=== PATIENT | male | born 1955 | race Hispanic/Latino ===

== ENCOUNTER 2022-09-15 13:31 | Observation (INO) | payer OTHER, SELFPAY ==
[~2022-09-15] VITALS: Ht 175.3 cm; Wt 86.7 kg
[2022-09-15 14:13] LABS: BASOPHILS % (AUTO) 0.9 % (0.0-5.0); EOSINOPHILS % (AUTO) 1.6 % (0.0-8.0); HEMATOCRIT 47.4 % (42-54); LYMPHOCYTES % (AUTO) 20.4 % (21.0-51.0); MEAN CORPUSCULAR HEMOGLOBIN 30.3 pg (27.0-33.0); MEAN CORPUSCULAR HGB CONC 34.4 g/dL (32.0-36.0); MEAN CORPUSCULAR VOLUME 88.1 fL (79-99); MONOCYTES % (AUTO) 6.7 % (3.0-13.0); NEUTROPHILS % (AUTO) 70.1 % (40.0-77.0); PLATELET COUNT (AUTO) 291 K/uL (130-400); RED BLOOD CELL COUNT(AUTO) 5.38 MIL/uL (4.50-6.20); RED CELL DISTRIBUTION WIDTH 13.1 % (11.0-15.5); WHITE BLOOD COUNT (AUTO) 9.3 K/uL (4.8-10.8)
[2022-09-15 14:27] LABS: CREATININE 1.3 mg/dL (0.5-1.5); POTASSIUM 3.4 mmol/L (3.5-5.1)
[2022-09-15 14:32] LABS: ALBUMIN 3.4 g/dL (3.5-5.0); TOTAL PROTEIN, SERUM 7.8 g/dL (6.0-8.3)
[2022-09-15] MEDS ORDERED: CLOPIDOGREL 300MG TAB PO ONE (15:30)
[2022-09-15] MEDS ORDERED: ASPIRIN 81MG CHEW TAB PO ONE (15:30)
[2022-09-15 15:31] LABS: B-TYPE NATRIURETIC PEPTIDE 129 pg/mL (0-100)
[2022-09-15] MEDS ORDERED: ALBUTEROL 0.083% 2.5 MG/3 ML INH IH PRN (16:00)
[2022-09-15] MEDS ORDERED: NITROGLYCERIN 1GM OINT 1 INCH/1GM TD PRN (16:00)
[2022-09-15] MEDS ORDERED: ONDANSETRON 4MG INJ IVP PRN (16:00)
[2022-09-15] MEDS ORDERED: LABETALOL 20MG SYG IV PRN (16:00)
[2022-09-15] MEDS ORDERED: ACETAMINOPHEN 325 MG TAB PO PRN (16:00)
[2022-09-15] MEDS ORDERED: POTASSIUM CHLORIDE 20MEQ/100ML 100 ML IV PRN (16:00)
[2022-09-15] MEDS ORDERED: LACTULOSE 20 GM/30 ML UDCUP PO PRN (16:00)
[2022-09-15] MEDS ORDERED: POTASSIUM CHLORIDE 10% ELIXIR 20 MEQ/15 ML UDCUP PO PRN (16:00)
[2022-09-15] MEDS ORDERED: HYDRALAZINE 20MG/ML VIAL IV PRN (16:00)
[2022-09-15] MEDS: INSULIN HUMULIN R 100 UNIT/ML 3ML SQ SCH ×2 (16:30→21:00)
[2022-09-15] MEDS ORDERED: LISI10TA24 PO (16:51)
[2022-09-15 17:31] LABS: APPEARANCE,URINE CLEAR (CLEAR); BILIRUBIN,URINE NEGATIVE (NEGATIVE); COLOR,URINE LIGHT-YELLOW (YELLOW); GLUCOSE, URINE (UA) NEGATIVE (NEGATIVE); KETONES,URINE NEGATIVE (NEGATIVE); LEUKOCYTE ESTERASE ,URINE NEGATIVE Leu/uL (NEGATIVE); NITRATE,URINE NEGATIVE (NEGATIVE); OCCULT BLOOD,URINE SMALL (NEGATIVE); PH,URINE 5.5 (5.0-8.0); PROTEIN,URINE NEGATIVE (NEGATIVE); UROBILINOGEN,URINE 0.2 mg/dL (0.2-1.0)
[2022-09-15 17:38] LABS: MUCUS,URINE RARE LPF (None Seen); OTHER CASTS, URINE 3 /LPF (None Seen); WBC,URINE 0-1 /HPF (0-1)
[2022-09-15] MEDS ORDERED: SIMVASTATIN 20 MG TABLET PO SCH (21:00)
[2022-09-15] MEDS: FAMOTIDINE 20MG TAB PO SCH (21:00)
[2022-09-16] VITALS (7 sets, daily range): BP systolic 128–161; BP diastolic 71–86
[2022-09-16] MEDS: KCL 20 MEQ ERTAB PO PRN ×2 (00:17→00:49)
[2022-09-16 04:27] LABS: BASOPHILS % (AUTO) 0.6 % (0.0-5.0); EOSINOPHILS % (AUTO) 3.2 % (0.0-8.0); MEAN CORPUSCULAR HEMOGLOBIN 30.5 pg (27.0-33.0); MEAN CORPUSCULAR HGB CONC 34.3 g/dL (32.0-36.0); MONOCYTES % (AUTO) 9.6 % (3.0-13.0); NEUTROPHILS % (AUTO) 58.5 % (40.0-77.0); PLATELET COUNT (AUTO) 264 K/uL (130-400); RED BLOOD CELL COUNT(AUTO) 4.72 MIL/uL (4.50-6.20); RED CELL DISTRIBUTION WIDTH 13.1 % (11.0-15.5); WHITE BLOOD COUNT (AUTO) 7.9 K/uL (4.8-10.8)
[2022-09-16 04:40] LABS: HEMOGLOBIN A1C 6.1 % (4.0-6.0)
[2022-09-16] MEDS: INSULIN HUMULIN R 100 UNIT/ML 3ML SQ SCH ×4 (04:44→21:00)
[2022-09-16 04:58] LABS: CREATININE 1.2 mg/dL (0.5-1.5); MAGNESIUM 2.1 mg/dL (1.80-2.40); PHOSPHORUS 4.1 mg/dL (2.5-4.9); POTASSIUM 4.5 mmol/L (3.5-5.1); THYROID STIMULATING HORMONE 2.21 uIU/mL (0.36-3.74)
[2022-09-16 05:11] LABS: B-TYPE NATRIURETIC PEPTIDE 158 pg/mL (0-100)
[2022-09-16] MEDS: ASPIRIN 81MG CHEW TAB PO SCH (09:00)
[2022-09-16] MEDS: ENOXAPARIN SODIUM 30 MG/0.3 ML SQ SCH (09:00)
[2022-09-16] MEDS: FAMOTIDINE 20MG TAB PO SCH ×2 (09:00→20:22)
[2022-09-16] MEDS ORDERED: CLOPIDOGREL 300MG TAB PO SCH (12:00)
[2022-09-16] MEDS ORDERED: LOSARTAN 25 MG TABLET PO ONE (12:00)
[2022-09-16] MEDS ORDERED: 0.9% NACL 500ML IV.SOLN 500 ML IV SCH (12:00)
[2022-09-16] MEDS: LABETALOL HCL 200 MG TABLET PO SCH ×4 (12:00→20:22)
[2022-09-16] MEDS: LOSARTAN 25 MG TABLET PO SCH (12:00)
[2022-09-16] MEDS: EZETIMIBE 10 MG TAB PO SCH (20:22)
[2022-09-16] MEDS ORDERED: ATORVASTATIN 40 MG TABLET PO SCH (21:00)
[2022-09-16 22:13] LABS: AMPHET/METH SCREEN,URINE NEGATIVE (NEGATIVE); BARBITURATE SCREEN, URINE NEGATIVE (NEGATIVE); BENZODIAZEPINES SCREEN,URINE NEGATIVE (NEGATIVE); CANNABINOID SCREEN,URINE NEGATIVE (NEGATIVE); COCAINE SCREEN,URINE NEGATIVE (NEGATIVE); OPIATE SCREEN,URINE NEGATIVE (NEGATIVE); PHENCYCLIDINE SCREEN,URINE NEGATIVE (NEGATIVE)
[2022-09-17] VITALS (9 sets, daily range): BP systolic 94–132; BP diastolic 59–82
[2022-09-17 05:18] LABS: BASOPHILS % (AUTO) 0.5 % (0.0-5.0); EOSINOPHILS % (AUTO) 2.8 % (0.0-8.0); HEMATOCRIT 41.9 % (42-54); LYMPHOCYTES % (AUTO) 20.6 % (21.0-51.0); MEAN CORPUSCULAR HEMOGLOBIN 29.9 pg (27.0-33.0); MEAN CORPUSCULAR HGB CONC 33.7 g/dL (32.0-36.0); MONOCYTES % (AUTO) 9.7 % (3.0-13.0); NEUTROPHILS % (AUTO) 66.1 % (40.0-77.0); PLATELET COUNT (AUTO) 270 K/uL (130-400); RED BLOOD CELL COUNT(AUTO) 4.71 MIL/uL (4.50-6.20); RED CELL DISTRIBUTION WIDTH 13.2 % (11.0-15.5); WHITE BLOOD COUNT (AUTO) 7.9 K/uL (4.8-10.8)
[2022-09-17 05:32] LABS: INR 0.94 (0.85-1.15); PROTHROMBIN TIME 10.3 SEC (9.6-11.6)
[2022-09-17 05:33] LABS: PARTIAL THROMBOPLASTIN TIME 27.3 SEC (26.3-35.5)
[2022-09-17 05:37] LABS: CREATININE 1.1 mg/dL (0.5-1.5); POTASSIUM 4.1 mmol/L (3.5-5.1)
[2022-09-17] MEDS: INSULIN HUMULIN R 100 UNIT/ML 3ML SQ SCH ×2 (05:53→11:30)
[2022-09-17] MEDS: LOSARTAN 25 MG TABLET PO SCH (05:54)
[2022-09-17] MEDS: LABETALOL HCL 200 MG TABLET PO SCH (05:54)
[2022-09-17] MEDS: ENOXAPARIN SODIUM 30 MG/0.3 ML SQ SCH (08:07)
[2022-09-17] MEDS: ASPIRIN 81MG CHEW TAB PO SCH (08:07)
[2022-09-17] MEDS: FAMOTIDINE 20MG TAB PO SCH (08:07)
[2022-09-17] MEDS: EZETIMIBE 10 MG TAB PO SCH (08:07)
[2022-09-17] MEDS ORDERED: LIDOCAINE HCL 1% 20 ML VIAL ONE (08:15)
[2022-09-17] MEDS ORDERED: HEPARIN 10,000 UNIT/10ML (1,000 UNIT/ML) VIAL ONE (08:15)
[2022-09-17] MEDS ORDERED: IOHEXOL-350 50ML VIAL IV ONE (08:16)
[2022-09-17] MEDS ORDERED: IOHEXOL 350 MG/ML 100ML INFUS..BTL IV ONE (08:16)
[2022-09-17] MEDS ORDERED: FENTANYL CITRATE PF 50 MCG/1 ML 2ML VIAL ONE (08:16)
[2022-09-17] MEDS ORDERED: MIDAZOLAM HCL 1 MG/ML 2ML VIAL ONE (08:16)
[2022-09-17] MEDS ORDERED: SODIUM BICARB 50MEQ 50ML VIAL 50 ML ONE (08:25)
[2022-09-17] MEDS ORDERED: NICARDIPINE 25MG INJ IV ONE (08:26)
[2022-09-17] MEDS ORDERED: IOHEXOL-350 75 ML VIAL IV ONE (09:10)
[2022-09-17] MEDS ORDERED: LABE200T7 PO (09:38)
[2022-09-17] MEDS ORDERED: LOSA25TA2 PO (09:38)
[2022-09-17] MEDS ORDERED: ATOR40TA69 PO (09:38)
[2022-09-17] MEDS: 0.9% NACL 500ML IV.SOLN 500 ML IV SCH ×2 (10:00→13:20)
[2022-09-17] MEDS ORDERED: ASPI-1005 PO (12:17)
== END 2022-09-17 15:25 | disposition home or self-care (01) ==
LOC: EDH 13:31 → EDHIP 15:38 → 4BH 23:30
PROVIDERS: ADMIT Internal Medicine; ATTEND Internal Medicine
DX: I25.119 Atherosclerotic heart disease of native coronary artery with unspecified angina pectoris (principal); Z20.822 Contact with and (suspected) exposure to COVID-19; E87.6 Hypokalemia; I10 Essential (primary) hypertension; I21.4 Non-ST elevation (NSTEMI) myocardial infarction; E78.5 Hyperlipidemia, unspecified; I25.2 Old myocardial infarction; R77.8 Other specified abnormalities of plasma proteins; Z79.02 Long term (current) use of antithrombotics/antiplatelets; Z79.82 Long term (current) use of aspirin; Z79.899 Other long term (current) drug therapy; Z87.891 Personal history of nicotine dependence
CPT/HCPCS: 82550 ×3; 83735 ×2; 83874 ×3; 84484 ×5; 80053; 83880 ×2; 80305; 82140; 85025 ×3; 82948 ×8; 81001; 36415 ×3; 71045 ×2; 99291; 93005 ×2; 96374; 83036; 84443; 84100; 80061; 80048 ×2; 83605; 93306; 93356; 84145; 93458; 85610; 85730; 87635; G0378 ×43; J7040; C1769; C1894; Q9965; J3010; J3490 ×2; J1644 ×2; J2250; Q9967 ×2; 99156; 99157

== ENCOUNTER 2023-02-07 21:33 | Observation (INO) | payer OTHER ==
[~2023-02-07] VITALS: Ht 175.3 cm; Wt 87.1 kg
[~2023-02-07 21:33] MED LIST: ASPI-1005 PO; ATOR40TA69 PO; LABE200T7 PO; LOSA25TA2 PO
[2023-02-07 21:50] LABS: BASOPHILS % (AUTO) 0.7 % (0.0-5.0); EOSINOPHILS % (AUTO) 3.2 % (0.0-8.0); HEMATOCRIT 44.9 % (42-54); LYMPHOCYTES % (AUTO) 24.4 % (21.0-51.0); MEAN CORPUSCULAR HEMOGLOBIN 30.5 pg (27.0-33.0); MEAN CORPUSCULAR HGB CONC 33.6 g/dL (32.0-36.0); MEAN CORPUSCULAR VOLUME 90.7 fL (79-99); MONOCYTES % (AUTO) 8.6 % (3.0-13.0); NEUTROPHILS % (AUTO) 62.9 % (40.0-77.0); PLATELET COUNT (AUTO) 273 K/uL (130-400); RED BLOOD CELL COUNT(AUTO) 4.95 MIL/uL (4.50-6.20); RED CELL DISTRIBUTION WIDTH 12.9 % (11.0-15.5); WHITE BLOOD COUNT (AUTO) 8.4 K/uL (4.8-10.8)
[2023-02-07 22:01] LABS: APPEARANCE,URINE CLEAR (CLEAR); BILIRUBIN,URINE NEGATIVE (NEGATIVE); COLOR,URINE LIGHT-YELLOW (YELLOW); CREATININE 1.4 mg/dL (0.5-1.5); GLUCOSE, URINE (UA) NEGATIVE (NEGATIVE); KETONES,URINE NEGATIVE (NEGATIVE); LEUKOCYTE ESTERASE ,URINE NEGATIVE Leu/uL (NEGATIVE); NITRATE,URINE NEGATIVE (NEGATIVE); OCCULT BLOOD,URINE MODERATE (NEGATIVE); PH,URINE 5.5 (5.0-8.0); PROTEIN,URINE 30 mg/dL (NEGATIVE); UROBILINOGEN,URINE 0.2 mg/dL (0.2-1.0)
[2023-02-07 22:06] LABS: BACTERIA,URINE RARE /HPF (None Seen); MUCUS,URINE RARE LPF (None Seen); YEAST,URINE BUDDING FEW /HPF (None Seen)
[2023-02-07 22:13] LABS: ALBUMIN 3.3 g/dL (3.5-5.0); TOTAL PROTEIN, SERUM 7.3 g/dL (6.0-8.3)
[2023-02-08] MEDS ORDERED: ACETAMINOPHEN 325 MG TAB PO PRN (01:00)
[2023-02-08] MEDS ORDERED: MORPHINE 2 MG SYG IVP PRN (01:00)
[2023-02-08] MEDS ORDERED: ONDANSETRON 4MG INJ IVP PRN (01:00)
[2023-02-08] MEDS ORDERED: ENOXAPARIN SODIUM 80 MG/0.8 ML SQ ONE (01:00)
[2023-02-08] MEDS ORDERED: HYDRALAZINE 20MG/ML VIAL IV PRN (01:00)
[2023-02-08] MEDS ORDERED: ASPIRIN 81MG CHEW TAB PO ONE (01:00)
[2023-02-08] MEDS ORDERED: LACTULOSE 20 GM/30 ML UDCUP PO PRN (01:00)
[2023-02-08] MEDS ORDERED: DEXTROSE 50%-WATER 50 ML DISP.SYRIN IV PRN (01:00)
[2023-02-08] MEDS ORDERED: GLUCAGON 1MG KIT 1 MG ML IM PRN (01:00)
[2023-02-08] MEDS ORDERED: ALBUTEROL 0.083% 2.5 MG/3 ML INH IH PRN (01:00)
[2023-02-08] MEDS ORDERED: AEC81 PO (03:33)
[2023-02-08] MEDS ORDERED: RIVA2.5T PO (03:33)
[2023-02-08] MEDS ORDERED: ATOR40TA69 PO (03:33)
[2023-02-08] MEDS ORDERED: LABE200T7 PO ×2 (03:33→14:49)
[2023-02-08] MEDS ORDERED: ACET-2079 PO (03:33)
[2023-02-08] MEDS ORDERED: ISOS30TA92 PO (03:33)
[2023-02-08] MEDS ORDERED: LOSA25TA41 PO (03:33)
[2023-02-08 03:51] VITALS: BP 136/85
[2023-02-08] MEDS ORDERED: ATORVASTATIN 40 MG TABLET PO SCH (04:00)
[2023-02-08 04:27] LABS: AMPHET/METH SCREEN,URINE NEGATIVE (NEGATIVE); BARBITURATE SCREEN, URINE NEGATIVE (NEGATIVE); BENZODIAZEPINES SCREEN,URINE NEGATIVE (NEGATIVE); CANNABINOID SCREEN,URINE NEGATIVE (NEGATIVE); COCAINE SCREEN,URINE NEGATIVE (NEGATIVE); OPIATE SCREEN,URINE NEGATIVE (NEGATIVE); PHENCYCLIDINE SCREEN,URINE NEGATIVE (NEGATIVE)
[2023-02-08] MEDS: INSULIN HUMULIN R 100 UNIT/ML 3ML SQ SCH ×3 (06:47→14:59)
[2023-02-08 07:46] LABS: PROTHROMBIN TIME 10.9 SEC (9.6-11.6)
[2023-02-08 07:48] VITALS: BP 130/74
[2023-02-08 08:00] LABS: THYROID STIMULATING HORMONE 1.97 uIU/mL (0.36-3.74)
[2023-02-08] MEDS: DOCUSATE SODIUM 100 MG CAP PO SCH ×2 (08:50→09:00)
[2023-02-08] MEDS ORDERED: ASPIRIN 81MG CHEW TAB PO SCH (09:00)
[2023-02-08] MEDS ORDERED: ASPIRIN 81 MG EC TAB PO SCH (09:00)
[2023-02-08 09:08] LABS: BASOPHILS % (AUTO) 0.8 % (0.0-5.0); EOSINOPHILS % (AUTO) 3.5 % (0.0-8.0); HEMATOCRIT 42.7 % (42-54); LYMPHOCYTES % (AUTO) 24.7 % (21.0-51.0); MEAN CORPUSCULAR HEMOGLOBIN 30.2 pg (27.0-33.0); MEAN CORPUSCULAR VOLUME 91.4 fL (79-99); MONOCYTES % (AUTO) 10.3 % (3.0-13.0); NEUTROPHILS % (AUTO) 60.4 % (40.0-77.0); PLATELET COUNT (AUTO) 280 K/uL (130-400); RED BLOOD CELL COUNT(AUTO) 4.67 MIL/uL (4.50-6.20); RED CELL DISTRIBUTION WIDTH 13.1 % (11.0-15.5); WHITE BLOOD COUNT (AUTO) 7.4 K/uL (4.8-10.8)
[2023-02-08 09:11] LABS: CREATININE 1.2 mg/dL (0.5-1.5); POTASSIUM 4.1 mmol/L (3.5-5.1)
[2023-02-08 12:00] VITALS: BP 129/58
[2023-02-08] MEDS ORDERED: ENOXAPARIN SODIUM 80 MG/0.8 ML SQ SCH (13:00)
[2023-02-08 14:50] VITALS: BP 137/71
== END 2023-02-08 15:30 | disposition home or self-care (01) ==
LOC: EDH 21:33 → EDHIP 02-08 00:46 → 2DH 02-08 03:04
PROVIDERS: ADMIT Internal Medicine Critical Care Medicine; ATTEND Internal Medicine Critical Care Medicine
DX: D68.9 Coagulation defect, unspecified (principal); I21.4 Non-ST elevation (NSTEMI) myocardial infarction; I10 Essential (primary) hypertension; I25.110 Atherosclerotic heart disease of native coronary artery with unstable angina pectoris; E11.9 Type 2 diabetes mellitus without complications; J44.9 Chronic obstructive pulmonary disease, unspecified; E78.00 Pure hypercholesterolemia, unspecified; E75.6 Lipid storage disorder, unspecified; Z87.891 Personal history of nicotine dependence; Z98.61 Coronary angioplasty status; Z79.899 Other long term (current) drug therapy; Z98.890 Other specified postprocedural states; Z79.82 Long term (current) use of aspirin
CPT/HCPCS: 84484 ×4; 80053; 83880; 85025 ×2; 85378 ×2; 81001; 36415 ×2; 71045; 99291; 93005 ×2; 96372; 83036; 84443; 82550; 83874; 82330; 80061; 80048; 80305; 85610; 82948 ×3; G0378 ×13; J1650 ×2; C8929; 93306

== ENCOUNTER → 2024-01-25 | Outpatient (CLI) | payer OTHER ==
[~2024-01-25] MED LIST changes: +ACET-2079 PO; +AEC81 PO; -ASPI-1005 PO; +IOHEXOL 350 MG/ML 100ML INFUS..BTL IV ONE; +ISOS30TA92 PO; -LOSA25TA2 PO; +LOSA25TA41 PO; +RIVA2.5T PO
== END | disposition home or self-care (01) ==
LOC: RAH 07:18
PROVIDERS: ATTEND Urology
DX: N40.0 Benign prostatic hyperplasia without lower urinary tract symptoms (principal); K40.90 Unilateral inguinal hernia, without obstruction or gangrene, not specified as recurrent; R31.0 Gross hematuria; K57.90 Diverticulosis of intestine, part unspecified, without perforation or abscess without bleeding
CPT/HCPCS: 74178; Q9967

== ENCOUNTER 2024-07-18 13:08 | Emergency (ER) | payer OTHER ==
[~2024-07-18] VITALS: Ht 175.3 cm; Wt 95.3 kg
[~2024-07-18 13:08] MED LIST changes: -IOHEXOL 350 MG/ML 100ML INFUS..BTL IV ONE
[2024-07-18 13:40] LABS: BASOPHILS # (AUTO) 0.06 K/uL (0.00-0.20); BASOPHILS % (AUTO) 0.7 % (0.0-5.0); EOSINOPHILS % (AUTO) 3.4 % (0.0-8.0); HEMATOCRIT 45.3 % (42-54); IMMATURE GRANULOCYTE ABSOLUTE 0.02 K/uL (0-1); LYMPHOCYTES # (AUTO) 2.3 K/uL (1.0-4.8); MEAN CORPUSCULAR HGB CONC 33.6 g/dL (32.0-36.0); MEAN CORPUSCULAR VOLUME 89.3 fL (79-99); MONOCYTES # (AUTO) 0.9 K/uL (0.1-1.0); MONOCYTES % (AUTO) 9.6 % (3.0-13.0); NEUTROPHILS # (AUTO) 5.3 K/uL (1.8-7.7); NEUTROPHILS % (AUTO) 60.1 % (40.0-77.0); PLATELET COUNT (AUTO) 287 K/uL (130-400); RED BLOOD CELL COUNT(AUTO) 5.07 MIL/uL (4.50-6.20); RED CELL DISTRIBUTION WIDTH 13.2 % (11.0-15.5); WHITE BLOOD COUNT (AUTO) 8.9 K/uL (4.8-10.8)
[2024-07-18 13:47] LABS: CREATININE 1.3 mg/dL (0.5-1.3); POTASSIUM 4.4 mmol/L (3.5-5.1)
[2024-07-18 13:49] LABS: INR 1.11 (0.85-1.15); PROTHROMBIN TIME 11.9 SEC (9.6-11.6)
[2024-07-18 13:51] LABS: PARTIAL THROMBOPLASTIN TIME 33.3 SEC (26.3-35.5)
[2024-07-18 14:06] LABS: B-TYPE NATRIURETIC PEPTIDE 73 pg/mL (0-100)
[2024-07-18] MEDS: PANTOPRAZOLE 40 MG/VIAL IVP ONE (14:29)
[2024-07-18 14:30] LABS: APPEARANCE,URINE CLEAR (CLEAR); BILIRUBIN,URINE NEGATIVE (NEGATIVE); COLOR,URINE COLORLESS (YELLOW); GLUCOSE, URINE (UA) NEGATIVE (NEGATIVE); KETONES,URINE NEGATIVE (NEGATIVE); LEUKOCYTE ESTERASE ,URINE NEGATIVE Leu/uL (NEGATIVE); NITRATE,URINE NEGATIVE (NEGATIVE); OCCULT BLOOD,URINE SMALL (NEGATIVE); PH,URINE 5.5 (5.0-8.0); PROTEIN,URINE NEGATIVE (NEGATIVE); UROBILINOGEN,URINE 0.2 mg/dL (0.2-1.0)
[2024-07-18 14:33] LABS: ADD UA MICROSCOPIC YES
[2024-07-18 14:41] LABS: MUCUS,URINE RARE LPF (None Seen); RBC,URINE 0-1 /HPF (0-1); WBC,URINE 0-1 /HPF (0-1)
[2024-07-18] MEDS ORDERED: PANT40TA55 PO (15:24)
[2024-07-18 15:37] VITALS: BP 123/68; PULSE 59; RESP 14; TEMP 98.8; O2SAT 98
== END 2024-07-18 15:59 | disposition home or self-care (01) ==
LOC: EDH 13:08
DX: R00.2 Palpitations (principal); K21.9 Gastro-esophageal reflux disease without esophagitis; I48.91 Unspecified atrial fibrillation; I25.10 Atherosclerotic heart disease of native coronary artery without angina pectoris; E78.00 Pure hypercholesterolemia, unspecified; I10 Essential (primary) hypertension; F17.200 Nicotine dependence, unspecified, uncomplicated; Z98.890 Other specified postprocedural states; Z79.899 Other long term (current) drug therapy; Z79.82 Long term (current) use of aspirin
CPT/HCPCS: 99285; 96374; 71045; 82550; 83735; 84484 ×3; 80048; 83880; 85025; 85610; 85730; 81001; 36415; 93005; J2470

== ENCOUNTER 2024-11-25 05:39 | Day surgery (SDC) | payer OTHER ==
--- NOTE | 2024-11-23 09:10 | EKG ---
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
[2024-11-23 09:17] LABS: BASOPHILS # (AUTO) 0.08 K/uL (0.00-0.20); BASOPHILS % (AUTO) 0.8 % (0.0-5.0); EOSINOPHILS # (AUTO) 0.25 K/uL (0.00-0.70); EOSINOPHILS % (AUTO) 2.7 % (0.0-8.0); HEMATOCRIT 45.5 % (42-54); IMMATURE GRANULOCYTE ABSOLUTE 0.04 K/uL (0-1); LYMPHOCYTES # (AUTO) 1.8 K/uL (1.0-4.8); LYMPHOCYTES % (AUTO) 18.9 % (21.0-51.0); MEAN CORPUSCULAR HEMOGLOBIN 30.4 pg (27.0-33.0); MEAN CORPUSCULAR HGB CONC 33.6 g/dL (32.0-36.0); MEAN CORPUSCULAR VOLUME 90.5 fL (79-99); MONOCYTES # (AUTO) 0.9 K/uL (0.1-1.0); MONOCYTES % (AUTO) 9.4 % (3.0-13.0); NEUTROPHILS # (AUTO) 6.4 K/uL (1.8-7.7); NEUTROPHILS % (AUTO) 67.8 % (40.0-77.0); PLATELET COUNT (AUTO) 263 K/uL (130-400); RED BLOOD CELL COUNT(AUTO) 5.03 MIL/uL (4.50-6.20); RED CELL DISTRIBUTION WIDTH 13.3 % (11.0-15.5); WHITE BLOOD COUNT (AUTO) 9.4 K/uL (4.8-10.8)
[2024-11-23 09:26] LABS: CREATININE 1.4 mg/dL (0.5-1.3); POTASSIUM 4.1 mmol/L (3.5-5.1)
[2024-11-23 09:28] LABS: INR 1.02 (0.85-1.15); PROTHROMBIN TIME 11.4 SEC (9.6-11.6)
[2024-11-23 09:29] LABS: PARTIAL THROMBOPLASTIN TIME 32.6 SEC (26.3-35.5)
[2024-11-23 09:48] VITALS: BP 135/73; PULSE 53; RESP 18; TEMP 97.4
[2024-11-23 09:49] LABS: B-TYPE NATRIURETIC PEPTIDE 78 pg/mL (0-100)
--- NOTE | 2024-11-23 10:15 | HMCIMG ---
CHEST 1VW HISTORY: Preop COMPARISON: 10/12/2024 FINDINGS: A frontal projection of the chest was obtained. No acute pulmonary infiltrates is seen. The heart is borderline enlarged. Mild degenerative changes are seen. Aortic calcifications are seen. IMPRESSION: 1. No acute pulmonary infiltrate is seen.
--- NOTE | 2024-11-23 14:35 | NUR ---
notified. informed hetal yip lead quality technician pt eugenio yanez. received instructions to have pt hold day prior. pt notified and order written
--- NOTE | 2024-11-24 08:44 | NUR ---
report reported creat to hetal yip np. ok to proceed
[2024-11-25] VITALS (8 sets, daily range): BP systolic 101–118; BP diastolic 45–67; PULSE 45–58; RESP 14–16; TEMP 97.3–97.4
[~2024-11-25] VITALS: Ht 175.3 cm; Wt 94.2 kg
[~2024-11-25 05:39] MED LIST changes: -ACET-2079 PO; +APIX5TAB PO; +DRON400T7 PO; +FLUT1BLS3 IH; +ISOS60TA77 PO; -LABE200T7 PO; -LOSA25TA41 PO; +METO-409 PO; +NITR0.4T50 SL; +PANT40TA55 PO; -RIVA2.5T PO
[2024-11-25] MEDS: 0.9%NACL 1000ML 1,000 ML IV SCH (07:10)
[2024-11-25] MEDS ORDERED: HEParin 10,000 UNIT/10ML (1,000 UNIT/ML) VIAL ONE (07:33)
[2024-11-25] MEDS ORDERED: MIDAZOLAM HCL 1 MG/ML 2ML VIAL ONE (07:33)
[2024-11-25] MEDS ORDERED: IOHEXOL 350 MG/ML 100ML INFUS..BTL IV ONE (07:33)
[2024-11-25] MEDS ORDERED: NITROGLYCERIN 50MG VIAL ONE (07:34)
[2024-11-25] MEDS ORDERED: HEParin-NS 1,000 UNIT/500 ML 1,000 ML IV ONE (07:34)
[2024-11-25] MEDS ORDERED: LIDOCAINE HCL 400MG/20ML VIAL ONE (07:35)
[2024-11-25] MEDS ORDERED: FENTanyl CITRate PF 50 MCG/1 ML 2ML VIAL ONE (07:35)
[2024-11-25] MEDS ORDERED: niCARDIpine 25MG INJ IV ONE (07:37)
[2024-11-25] MEDS ORDERED: ATROPINE 1MG SYG IVP ONE (08:04)
--- NOTE | 2024-11-25 09:31 | PRN ---
PROCEDURE NOTE Indications: 1. Chest pain, CCS 2 symptoms 2. History of nonobstructive CAD 3. Paroxysmal atrial fibrillation, on anticoagulation 4. HTN 5. Normal left ventricle systolic function, estimated LVEF 55% Procedures: Coronary angiogram, IFR of the RCA Introduction: After informed written consent was obtained, the patient was brought to the C atheterization Lab in the usual fasting state. Following sterile prep and drape, a time out was performed, then moderate sedation was administered, 1mg of Versed and 25mcg of Fentanyl, then 1% Lidocaine was infiltrated into the right wrist. Using a Modified Seldinger technique, a 6Fr Sheath was inserted into the right radial artery. While under fluoroscopic guidance, diagnostic coronary catheters were advanced over a wire into the central circulation where they were aspirated, flushed and placed to pressure monitoring, once the wire was removed. Coronary Angio: The left and right coronary arteries were engaged with appropriate catheters and angiography was performed under continuous pressure monitoring. Cardiac Findings: Right dominant system LM: Large caliber, short vessel with mild luminal irregularities. The vessel bifurcates into the LAD and LCX. LAD: Large caliber vessel with diffuse 40-50% stenosis in the proximal mid LAD. The rest of the vessel has mild luminal irregularities. Diagonal 1: Small caliber vessel with mild luminal irregularities. Diagonal 2: Small caliber vessel mild lumen irregularities. Diagonal 3: Small caliber vessel with mild luminal irregularities LCx: Medium caliber vessel with diffuse 30-40% stenosis in the mid to distal LCX. OM 1: Medium caliber vessel with 20% stenosis in the proximal OM1 OM 2: Small caliber vessel with mild luminal irregularities OM 3: 100% stenosis (GRAVITY PROSPECTING OPERATOR = 40mm) in the ostial segment of the vessel. The vessel reconstitutes distally via [id number] collateral blood flow from the RPDA. RCA: Large caliber vessel with 50% stenosis in the proximal RCA had diffuse 20% stenosis in the distal RCA. RPDA: Medium caliber vessel with mild luminal irregularities. RPLV: Medium caliber vessel mild luminal irregularities. Medications given: Versed 1mg, Fentanyl 25mcg, heparin 5000 units Coronary Intervention: Guide catheter: JR4 Guidewire: IFR wire After reviewing the above-mentioned findings the decision was made to further evaluate the stenosis in the proximal RCA. The JR4 guide catheter was advanced into the ostium of the RCA. We then advanced the IFR wire across the areas stenosis and performed her hemodynamic assessment (IFR). The stenosis in the proximal RCA was deemed to be hemodynamically insignificant, IFR 0.98. The IFR wire was then pulled back. There was no significant drift. The JR4 guide catheter and IFR wire were then removed. The patient tolerated the procedure well without issue. Complications: None Conscious Sedation Monitoring: Under my direct order and supervision, medication for moderate conscious sedation was administered by the nursing staff and the patients level of consciousness and physiological status was monitored by an independent trained nurse. Closure of Access Site: After the case completed the sheath was pulled and a TR band was deployed on the right radial artery until hemostasis was achieved. Conclusion: 1. 1V CAD, 100% stenosis (GRAVITY PROSPECTING OPERATOR = 40mm) in the ostial OM3. The mid and distal segments of the vessel reconstitutes via [id number] collateral blood flow 2. Nonobstructive CAD, 50% stenosis in the proximal RCA (hemodynamically insignificant by IFR: 0.98), 40-50% stenosis in the proximal to mid LAD and diffuse 30-40% stenosis in the mid to distal LCX 3. Chest pain, CCS II symptoms 4. Paroxysmal atrial fibrillation, on anticoagulation 5. HTN 6. Normal left ventricle systolic function, estimated LVEF is 55% Recommendation: 1. Continue goal directed medical therapy. 2. Continue isosorbide mononitrate, as scheduled 3. Wrist precautions. 4. 3 hours of bedrest 5. No IV fluids 6. Please and act TR band removal protocol. 7. Okay to DC once TR band removed protocol has been complete in the right wrist is soft, and free of bruising, bleeding, and her hematoma formation. 8. No driving for the next 48 hours 9. No heavy lifting or strenuous exercise for the next two weeks. JOHANNA SOTO MD Nov 25, 2024 09:31
== END 2024-11-25 12:50 | disposition home or self-care (01) ==
LOC: DAH 05:39
PROVIDERS: ATTEND Internal Medicine Cardiovascular Disease
DX: R07.89 Other chest pain (principal); I25.10 Atherosclerotic heart disease of native coronary artery without angina pectoris; I25.82 Chronic total occlusion of coronary artery; I48.0 Paroxysmal atrial fibrillation; I11.9 Hypertensive heart disease without heart failure; E78.5 Hyperlipidemia, unspecified; I25.2 Old myocardial infarction; Z72.0 Tobacco use; K21.9 Gastro-esophageal reflux disease without esophagitis; Z79.01 Long term (current) use of anticoagulants; Z79.82 Long term (current) use of aspirin; Z79.899 Other long term (current) drug therapy
CPT/HCPCS: 80048; 83880; 85025; 85610; 85730; 36415; 71045; 93005; 93454; 93571; 85347; 82948; C1769 ×2; C1887; C1894 ×2; A4649; J3010; J3490 ×3; J7030; J1644 ×2; J2250; Q9967; A4215; A4222; A4221; A4663; A4216; A4606; Q9965; A4223 ×3; 99156; 99157; J0461

== ENCOUNTER 2024-12-20 08:28 | Day surgery (SDC) | payer OTHER ==
[2024-12-19 09:25] LABS: BASOPHILS # (AUTO) 0.06 K/uL (0.00-0.20); BASOPHILS % (AUTO) 0.7 % (0.0-5.0); EOSINOPHILS # (AUTO) 0.21 K/uL (0.00-0.70); EOSINOPHILS % (AUTO) 2.5 % (0.0-8.0); HEMATOCRIT 44.2 % (42-54); IMMATURE GRANULOCYTE ABSOLUTE 0.03 K/uL (0-1); LYMPHOCYTES # (AUTO) 1.6 K/uL (1.0-4.8); LYMPHOCYTES % (AUTO) 19.1 % (21.0-51.0); MEAN CORPUSCULAR HEMOGLOBIN 30.2 pg (27.0-33.0); MEAN CORPUSCULAR HGB CONC 33.3 g/dL (32.0-36.0); MEAN CORPUSCULAR VOLUME 90.9 fL (79-99); MONOCYTES # (AUTO) 0.8 K/uL (0.1-1.0); MONOCYTES % (AUTO) 9.8 % (3.0-13.0); NEUTROPHILS # (AUTO) 5.7 K/uL (1.8-7.7); NEUTROPHILS % (AUTO) 67.5 % (40.0-77.0); PLATELET COUNT (AUTO) 258 K/uL (130-400); RED BLOOD CELL COUNT(AUTO) 4.86 MIL/uL (4.50-6.20); RED CELL DISTRIBUTION WIDTH 13.9 % (11.0-15.5); WHITE BLOOD COUNT (AUTO) 8.4 K/uL (4.8-10.8)
[2024-12-19 09:32] LABS: CREATININE 1.5 mg/dL (0.5-1.3); POTASSIUM 3.9 mmol/L (3.5-5.1)
[2024-12-19 09:35] LABS: INR 1.07 (0.85-1.15); PROTHROMBIN TIME 11.9 SEC (9.6-11.6)
[2024-12-19 09:36] LABS: PARTIAL THROMBOPLASTIN TIME 33.3 SEC (26.3-35.5)
[2024-12-19 09:40] VITALS: BP 116/69; PULSE 65; RESP 18; TEMP 97.6
--- NOTE | 2024-12-19 09:59 | EKG ---
[facility] Test Date: 2024-12-19 Test Time: 10:04:50 Pat Name: POLO HILLS Department: [facility] Room: Gender: M Staff Pharmacist: [id number] : 1955 Requested By: RICARDO FRANCES Order Number: [id number] Reading MD: Kelechi Amador Measurements Intervals [place] Rate: 60 P: 0 NE: 187 QRS: 37 QRSD: 96 T: 80 QT: 501 QTc: 502 Interpretive Statements Sinus rhythm Ventricular trigeminy Prolonged QT interval Compared to ECG 11/23/2024 10:08:31 Ventricular premature complex(es) now present Prolonged QT interval now present Sinus bradycardia no longer present ST (T wave) deviation no longer present Electronically Signed On 12-19-2024 18:24:09 SHOEMAKER APPRENTICE by Kelechi Amador Please click the below link to view image of tracing.
[2024-12-20] VITALS (18 sets, daily range): BP systolic 101–121; BP diastolic 56–65; PULSE 60–65; RESP 14–18; TEMP 97.4–97.9
[~2024-12-20] VITALS: Ht 175.3 cm; Wt 95.1 kg
[~2024-12-20 08:28] MED LIST changes: -FLUT1BLS3 IH; -METO-409 PO; +TELM80TA10 PO; +UMEC1DIS IH; +VERA180T60 PO
[2024-12-20] MEDS: 0.9%NACL 1000ML 1,000 ML IV ONE (09:39)
[2024-12-20] MEDS ORDERED: FENTanyl CITRate PF 50 MCG/1 ML 2ML VIAL ONE ×2 (10:32→10:48)
[2024-12-20] MEDS ORDERED: LIDOCAINE PF 100MG/5ML (2%) SYRINGE 5ML ONE (10:32)
[2024-12-20] MEDS ORDERED: rocuRONium bROMide 10MG/1ML 5ML VL ONE (10:32)
[2024-12-20] MEDS ORDERED: proPOFol 10 MG/ML 20ML VIAL IV ONE ×2 (10:32→13:46)
[2024-12-20] MEDS ORDERED: ondanSETRON 4MG INJ ONE (10:32)
[2024-12-20] MEDS ORDERED: MIDAZOLAM HCL 1 MG/ML 2ML VIAL ONE (10:33)
[2024-12-20] MEDS ORDERED: LIDOCAINE HCL 400MG/20ML VIAL ONE (10:39)
[2024-12-20] MEDS ORDERED: HEParin 10,000 UNIT/10ML (1,000 UNIT/ML) VIAL ONE ×2 (10:39→11:39)
[2024-12-20] MEDS ORDERED: HEParin-NS 1,000 UNIT/500 ML 1,000 ML IV ONE (10:39)
[2024-12-20] MEDS ORDERED: phenylEPHRINE HCL 10 MG/ML 1ML VIAL IV ONE ×2 (10:48→13:18)
[2024-12-20] MEDS ORDERED: GLYCOPYRROLATE 0.2 MG/ML 5 ML VIAL ONE ×2 (11:47→13:40)
[2024-12-20] MEDS ORDERED: NEOSTIGMINE METHYLSULFATE 1MG/ML IV ONE (13:40)
[2024-12-20] MEDS ORDERED: SUCR1TAB PO (13:53)
[2024-12-20] MEDS ORDERED: acetaMINOPHEN 325 MG TAB PO PRN (14:00)
[2024-12-20] MEDS: MIDAZOLAM HCL 1 MG/ML 2ML VIAL ONE (14:33)
[2024-12-20] MEDS: SUCRALFATE 1 GM/10 ML PO ONE (15:52)
--- NOTE | 2024-12-20 16:16 | NUR ---
FULL AND COMPLETE DISCHARGE INSTRUCTIONS GIVEN TO PATIENT AND FAMILY BOTH VERBALLY AND IN WRITING. VOICED UNDERSTANDING TO E COMMERCE MARKETING MANAGER PROCEDURE FOLLOW UP EXPECTATIONS AND PRECAUTIONS. GROIN SITE CLEAN, DRY WITH NO SIGN OF HEMATOMA, BRUISING OR BLEEDING. PEDAL PULSES INTACT. PATIENT DENIES C/O PAIN OR NEED.pATIENT VOIDED IN BATHROOM. STATED LARGE AMOUNT. PIV REMOVED WITH CATHETER TIP INTACT. W/C TO POV WITH FAMILY TO HOME SCHEDULED.
--- NOTE | 2024-12-21 07:43 | EKG ---
[facility] Test Date: 2024-12-20 Test Time: 16:39:34 Pat Name: POLO HILLS Department: [facility] Room: [facility] 15 Gender: Male Reed Or Wind Instrument Repairer: [id number] : 1955 Requested By: RICARDO FRANCES Order Number: [id number] Reading MD: Measurements Intervals [place] Rate: 62 P: 38 MD: 205 QRS: 35 QRSD: 98 T: 86 QT: 525 QTc: 534 Interpretive Statements Sinus rhythm Prolonged QT interval No previous ECG available for comparison Please click the below link to view image of tracing.
== END 2024-12-20 16:10 | disposition home or self-care (01) ==
LOC: DAH 08:28
PROVIDERS: ATTEND Student in an Organized Health Care Education/Training Program
DX: I48.0 Paroxysmal atrial fibrillation (principal); R00.2 Palpitations; E78.5 Hyperlipidemia, unspecified; I11.0 Hypertensive heart disease with heart failure; I50.20 Unspecified systolic (congestive) heart failure; I25.2 Old myocardial infarction; I25.118 Atherosclerotic heart disease of native coronary artery with other forms of angina pectoris; I49.3 Ventricular premature depolarization; J44.9 Chronic obstructive pulmonary disease, unspecified; F17.200 Nicotine dependence, unspecified, uncomplicated; E66.9 Obesity, unspecified; Z68.30 Body mass index [BMI] 30.0-30.9, adult; Z82.49 Family history of ischemic heart disease and other diseases of the circulatory system; Z79.01 Long term (current) use of anticoagulants; Z83.3 Family history of diabetes mellitus; Z86.16 Personal history of COVID-19; Z79.899 Other long term (current) drug therapy
CPT/HCPCS: 80048; 85025; 85610; 85730; 36415; 93005 ×2; 93656; C1894 ×3; C1732 ×3; A4649 ×2; C1760 ×3; C1766; J3010 ×2; J3490 ×4; J7030; J2003; J1644 ×3; J2250 ×2; J2704 ×2; J2405; J2710; J2371 ×2; A4215; A4222; A4221; A4663; A4216; A4606; A4223 ×3

== ENCOUNTER 2024-12-21 10:17 | Emergency (ER) | payer OTHER ==
[~2024-12-21] VITALS: Ht 175.3 cm; Wt 93.0 kg
[~2024-12-21 10:17] MED LIST changes: +SUCR1TAB PO
[2024-12-21 10:57] LABS: APPEARANCE,URINE CLEAR (CLEAR); BILIRUBIN,URINE NEGATIVE (NEGATIVE); COLOR,URINE COLORLESS (YELLOW); GLUCOSE, URINE (UA) NEGATIVE (NEGATIVE); KETONES,URINE NEGATIVE (NEGATIVE); LEUKOCYTE ESTERASE ,URINE NEGATIVE Leu/uL (NEGATIVE); NITRATE,URINE NEGATIVE (NEGATIVE); OCCULT BLOOD,URINE SMALL (NEGATIVE); PROTEIN,URINE NEGATIVE (NEGATIVE); UROBILINOGEN,URINE 0.2 mg/dL (0.2-1.0)
[2024-12-21 10:59] LABS: ADD UA MICROSCOPIC YES
[2024-12-21 11:16] LABS: CREATININE 1.3 mg/dL (0.5-1.3); POTASSIUM 4.3 mmol/L (3.5-5.1)
[2024-12-21 11:20] LABS: BASOPHILS # (AUTO) 0.05 K/uL (0.00-0.20); BASOPHILS % (AUTO) 0.4 % (0.0-5.0); EOSINOPHILS # (AUTO) 0.07 K/uL (0.00-0.70); EOSINOPHILS % (AUTO) 0.6 % (0.0-8.0); HEMATOCRIT 41.8 % (42-54); IMMATURE GRANULOCYTE ABSOLUTE 0.03 K/uL (0-1); LYMPHOCYTES # (AUTO) 1.1 K/uL (1.0-4.8); LYMPHOCYTES % (AUTO) 9.8 % (21.0-51.0); MEAN CORPUSCULAR HEMOGLOBIN 29.8 pg (27.0-33.0); MEAN CORPUSCULAR VOLUME 90.3 fL (79-99); MONOCYTES # (AUTO) 0.9 K/uL (0.1-1.0); MONOCYTES % (AUTO) 8.2 % (3.0-13.0); NEUTROPHILS # (AUTO) 9.3 K/uL (1.8-7.7); NEUTROPHILS % (AUTO) 80.7 % (40.0-77.0); PLATELET COUNT (AUTO) 248 K/uL (130-400); RED BLOOD CELL COUNT(AUTO) 4.63 MIL/uL (4.50-6.20); RED CELL DISTRIBUTION WIDTH 13.8 % (11.0-15.5); WHITE BLOOD COUNT (AUTO) 11.5 K/uL (4.8-10.8)
[2024-12-21 11:42] LABS: MUCUS,URINE RARE LPF (None Seen); RBC,URINE 0-1 /HPF (0-1); SQUAMOUS EPITHELIAL CELL,UR RARE /HPF (0-2); WBC,URINE 0-1 /HPF (0-1)
--- NOTE | 2024-12-21 12:07 | ERN ---
General Chief Complaint: Urinary Retention Stated Complaint: POST PROCEDURE Time Seen by MD: 10:20 Time Seen by Midlevel: 10:20 Source: patient History of Present Illness Initial Comments Patient is a 69-year-old male with a past medical history of BPH presenting to the emergency department with urinary retention. The patient reports having a heart catheterization performed yesterday. When he was released back home he states he was unable to urinate. Patient states he has small urinary dribble but is unable to fully form a urinary stream. He denies any lower abdominal pain. Denies any other symptoms at this time. He does report a previous surgical history of a prostate biopsy that came back normal. Allergies: Coded Allergies: No Known Drug Allergies (Unverified Allergy, Unknown, 09/15/22) Home Meds Active Scripts Sucralfate (Carafate) 1 Gram Tablet, 1 TAB PO QID for 14 Days, #56 TAB 0 Refills please dissolve in water. Do not crush Prov:RICARDO STEINER MD 12/20/24 Dronedarone Hydrochloride (Multaq) 400 Mg Tablet, 1 TAB PO BID for 30 Days, #60 TAB 3 Refills Prov:KACIE VERNON MD 10/13/24 Pantoprazole Sodium (Protonix) 40 Mg Ectab, 40 MG PO DAILY for 30 Days, #30 TAB.EC Prov:FRANCI CANSECO MD 07/18/24 Reported Medications Verapamil HCl (Verapamil ER) 180 Mg Tablet.er, 180 MG PO BID, TAB 12/19/24 Telmisartan (Telmisartan) 80 Mg Tablet, 80 MG PO AM, TAB 12/19/24 Umeclidinium Brm/Vilanterol Tr (Anoro Ellipta 62.5-25 Mcg INH) 62.5 Mcg-25 Mcg/Actuation Disk.w.dev, 1 EACH IH DAILY, DISK 12/19/24 Nitroglycerin (Nitroglycerin) 0.4 Mg Tab.subl, 1 TAB SL AD for chest pain, #25 TAB 0 Refills 1st sign of attack; may repeat every 5 mins; if pain persists after 3 in 15 min, medical attention is recommended 11/23/24 Apixaban (Eliquis) 5 Mg Tablet, 1 TAB PO BID 11/23/24 Isosorbide Mononitrate (Isosorbide Mononitrate ER) 30 Mg Tab.er.24h, 1 TAB PO AM 11/23/24 Isosorbide Mononitrate (Isosorbide Mononitrate ER) 60 Mg Tab.er.24h, 1 TAB PO DAILY for 30 Days, #30 TAB 0 Refills 10/13/24 Aspirin (ASPIRIN 81 MG ECTAB) 81 Mg Ectab, 81 MG PO DAILY, TAB.EC 02/08/23 Atorvastatin Calcium (LIPITOR) 40 Mg Tablet, 40 MG PO HS, TAB 02/08/23 Discontinued Reported Medications Fluticasone/Umeclidin/Vilanter (Trelegy Ellipta 100-62.5-25) 100-62.5 Blst.w.dev, 1 PUFF IH DAILY 11/23/24 Metoprolol Succinate (Metoprolol Succinate) 100 Mg Tab.er.24h, 1 TAB PO DAILY for 30 Days, #30 TAB 0 Refills 10/13/24 Past Medical History Past Medical History: A-Fib, GERD, High Cholesterol, Heart Disease, Hypertension Past Surgical History: Other, None Surgical History Other: PROSTATE BIOPSY,ABLATION Family History Family History: CAD, DM, HTN Social History Social History: Smokers, Lives with family ROS Dictation CONSTITUTIONAL: Negative except for HPI HEAD/FACE: Negative except for HPI EENT: Negative except for HPI RESPIRATORY: Negative except for HPI GASTROINTESTINAL/ABDOMINAL: Negative except for HPI GENITOURINARY: Negative except for HPI MUSCULOSKELETAL: Negative except for HPI INTEGUMENTARY: Negative except for HPI NEUROLOGICAL/PSYCH: Negative except for HPI HEMATOLOGIC/LYMPHATIC: Negative except for HPI All Systems Negative, Except as noted above. 13 point review of systems assessed and all negative except for above. Physical Exam Physical Exam Dictation Vital Signs reviewed General Appearance: Alert, oriented x 3, no acute distress, well developed, nourished. Head and Face: non-traumatic. Eyes: PERRL, pink conjunctivas, eyelid no trauma, anterior chamber with arcus senilis. Ears: Pinnas intact and no signs of trauma or erythema ear canals clear and no discharge TM no erythema Nose: No discharge, no bleeding. Oropharynx: Mouth normal, tongue pink, pharynx clear,no erythema, tonsils no exudates, no abscesses noted, mucous membrane moist Neck: Supple, non-tender, no thyromegaly, no masses, no JVD, no bruits Breast:Deferred Chest:No tenderness, no crepitus, no paradoxical movement, no retractions Lungs:Clear, well-ventilated, symmetric, no rales, no wheezing, no rhonchi, no stridor, good breath sounds bilaterally Heart: Regular rate, regular rhythm, no murmur, no gallops Vascular: no peripheral edema, Abdomen: Soft, positive bowel sounds, nondistended, no guarding, nontender, no rebound, no masses no hepatomegaly, no splenomegaly, no Villafuerte's sign, no hernias. Rectal: Deferred Genital: Deferred Neurological: Normal speech, motor function intact, sensory function intact Musculoskeletal: Neck nontender, full range of motion, back nontender, full range of motion, Extremities: nontender, full range of motion Skin: Color pink, dry, no turgor, no rash, no lacerations, no abrasions, no contusions. Lymphatic: Deferred Results Laboratory and Microbiology Lab and Micro Result Laboratory Tests Test 12/21/24 10:30 12/21/24 10:50 Urine Color COLORLESS (YELLOW) Urine Appearance CLEAR (CLEAR) Urine pH 5.0 (5.0-8.0) Urine Specific [place] 1.006 (1.001-1.031) Urine Protein NEGATIVE mg/dL (NEGATIVE) Urine Glucose (UA) NEGATIVE mg/dL (NEGATIVE) Urine Ketones NEGATIVE mg/dL (NEGATIVE) Urine Occult Blood SMALL (NEGATIVE) H Urine Nitrate NEGATIVE (NEGATIVE) Urine Bilirubin NEGATIVE mg/dL (NEGATIVE) Urine Urobilinogen 0.2 mg/dL (0.2-1.0) Urine Leukocyte Esterase NEGATIVE [place]orne/uL Urine RBC 0-1 /HPF (0-1) Urine WBC 0-1 /HPF (0-1) Urine Squamous Epithelial Cells RARE /HPF (0-2) Urine Bacteria None /HPF (None Seen) White Blood Count 11.5 K/uL (4.8-10.8) H Red Blood Count 4.63 MIL/uL (4.50-6.20) Hemoglobin 13.8 g/dL (14.0-18.0) L Hematocrit 41.8 % (42-54) L Mean Corpuscular Volume 90.3 fL (79-99) Mean Corpuscular Hemoglobin 29.8 pg (27.0-33.0) Mean Corpuscular Hemoglobin Concent 33.0 g/dL (32.0-36.0) Red Cell Distribution Width 13.8 % (11.0-15.5) Platelet Count 248 K/uL (130-400) Mean Platelet Volume 9.9 fL (7.5-10.5) Immature Granulocyte % (Auto) 0.3 % (0-1) Neutrophils (%) (Auto) 80.7 % (40.0-77.0) H Lymphocytes (%) (Auto) 9.8 % (21.0-51.0) L Monocytes (%) (Auto) 8.2 % (3.0-13.0) Eosinophils (%) (Auto) 0.6 % (0.0-8.0) Basophils (%) (Auto) 0.4 % (0.0-5.0) Neutrophils # (Auto) 9.3 K/uL (1.8-7.7) H Lymphocytes # (Auto) 1.1 K/uL (1.0-4.8) Monocytes # (Auto) 0.9 K/uL (0.1-1.0) Eosinophils # (Auto) 0.07 K/uL (0.00-0.70) Basophils # (Auto) 0.05 K/uL (0.00-0.20) Absolute Immature Granulocyte (auto 0.03 K/uL (0-1) Nucleated Red Blood Cells 0.0 % (0.0-0.19) White Cell Morphology Comment See comments Sodium Level 135 mmol/L (136-145) L Potassium Level 4.3 mmol/L (3.5-5.1) Chloride Level 98 mmol/L (101-111) L Carbon Dioxide Level 28 mmol/L (21-32) Blood Urea Nitrogen 9 mg/dL (7-18) Creatinine 1.3 mg/dL (0.5-1.3) Glomerular Filtration Rate Calc 60 mL/min (>90) Random Glucose 107 mg/dL (70-105) H Total Calcium 8.5 mg/dL (8.5-10.1) Labs Reviewed?: Yes MDM MDM: Patient is a 69-year-old male with a past medical history of BPH presenting to the emergency department with urinary retention. The patient reports having a heart catheterization performed yesterday. When he was released back home he states he was unable to urinate. Patient states he has small urinary dribble but is unable to fully form a urinary stream. He denies any lower abdominal pain. Denies any other symptoms at this time. He does report a previous surgical history of a prostate biopsy that came back normal. On physical examination the patient is in no acute distress. Initial vital signs are remarkable for a temperature of 97.5. A heart rate of 55 beats per minute. A blood pressure of 159/95. Patient is afebrile and nontoxic appearing. CBC shows a slight leukocytosis with a white blood cell count of 11.5. This could be related to a stress reaction given that the patient just had a heart catheterization less than 24 hours ago. His chemistries are stable. His urinalysis does not show any evidence of infection. A CT scan of the abdomen and pelvis does not reveal bladder wall thickening to suggest tumor or inflammation. There are no intraluminal calculi. There was no evidence of chronic bladder outlet obstruction. There was no evidence of urinary bladder distention on CT scan to suggest an acute urinary retention however bladder scan reveals over 400 cc of urine. The patient has a attempted to urinate in the emergency department multiple times with no urine output. A Dixon catheter was placed. The patient will be discharged home with close outpatient follow up with Urology. The patient has already seen urologist in the past for his pr ostate biopsy and was advised to schedule an appointment as soon as possible. Strict return precautions were discussed. Differential diagnosis: Urinary retention, post bladder obstruction, ureter stone There are no social concerns with this patient. Prescription drug management Prescriptions will include: None Medical management and examination interpretation discussions were had by me with other qualified healthcare professionals as indicated for the patient's care. ED Course Orders Procedure Category Date Status Time Cbc With Differential LAB 12/21/24 Complete 10:27 Basic Metabolic Panel LAB 12/21/24 Complete 10:27 Urinalysis Profile LAB 12/21/24 Complete 10:27 Bladder Scan CPOE 12/21/24 Transmitted 10:27 Ct Abdomen/Pelvis W/O CT 12/21/24 Resulted Contrast 10:27 Nurse Driven Dixon DALILA 12/21/24 Complete Removal Pro 13:18 Vital Signs Date Time Temp Pulse Resp B/P (MAP) Pulse Ox O2 Delivery O2 Flow Rate FiO2 12/21/24 13:50 98.8 89 18 151/68 100 Room Air* 0 21 12/21/24 13:35 98.4 87 20 151/63 100 Room Air* 0 21 12/21/24 10:24 97.5 55 20 159/95 100 Room Air [facility] [address] [place] [address] IMAGING REPORT Signed PATIENT: POLO HILLS MR#: [id number] : 1955 SEX: M AGE: 69 LOCATION: [facility] ORDER [id number] STATUS: REG ER REPORT#: [id number] SERVICE 102 REASON: r/o post bladder outlet obstruction ORDERING PHYSICIAN: TY ROSALES PROCEDURE: ABD PEL WO - CT ABDOMEN/PELVIS W/O CONTRAST Exam Type: CT ABDOMEN/PELVIS W/O CONTRAST Clinical Information: r/o post bladder outlet obstruction Comparison: None CT Dose Index (CTDI): 10.20 mGy Dose Length Product (DLP): 530.00 total mGy-cm PROTOCOL: Routine noncontrast helical scanning of the abdomen and pelvis was performed at 5mm collimation. Findings: No evidence of nephro or ureterolithiasis is found. No hydronephrosis or ureteral dilatation is seen. The lung bases are clear. The stomach is unremarkable. It shows no wall thickening. No gross ulceration is seen. It is not overly distended. There are no surrounding inflammatory changes. No wall lesions are identified to suggest cancer. The spleen is unremarkable. It is not enlarged. The pancreas shows normal anatomy. It is not fatty replaced. It shows no lesions. The pancreatic duct is not dilated. The gallbladder is unremarkable. It shows no cholelithiasis. The gallbladder wall is normal in thickness. There is no pericholecystic fluid. The is no acute or chronic inflammation noted. The adrenal glands are unremarkable. There is no enlargement. No lesions are noted. The liver is unremarkable. It shows no focal masses. The appendix is unremarkable. It shows no evidence of inflammation. No appendicolith is seen. The small bowel is unremarkable. There is no evidence of dilatation to suggest obstruction. No evidence of adynamic ileus is seen. There is no small bowel wall thickening to suggest enteritis. There is a left inguinal hernia containing loops of sigmoid colon without incarceration or strangulation. The colon is otherwise unremarkable. The urinary bladder is unremarkable. There is no wall thickening to suggest tumor or inflammation. There are no intraluminal calculi. There are no diverticula. There is no evidence of chronic bladder outlet obstruction. There is no evidence of urinary bladder distention to suggest urinary retention. The other pelvic structures are unremarkable. The bony and vascular structures are unremarkable for the patient's age. IMPRESSION: There is a left inguinal hernia containing loops of sigmoid colon without incarceration or strangulation. The exam is otherwise unremarkable. This study was performed using dose reduction techniques to include automated exposure control and/or adjustment of the mA and/or kV according to patient size. DICTATED BY: QUINTEN GUERRERO MD DATE: 12/21/241217 ELECTRONICALLY SIGNED BY: QUINTEN GUERRERO MD DATE: 12/21/241227 DX & DISP Disposition: Discharge Departure Impression: Primary Impression: Urinary retention Condition: Stable Additional Instructions: Your blood work today is unremarkable. Your urinalysis does not show any evidence of infection. Your CT scan of the abdomen/pelvis reveals an unremarkable urinary bladder. Your bladder scan shows over 400 cc of fluid. It appears you are having urinary retention. This is most likely related to your prostate however you will need to follow up with a urologist outpatient. You will need to follow up with your primary care doctor and urologist outpatient for further evaluation. A Dixon catheter was placed which should help alleviate your urinary retention. Referrals: AMANDA PAINTER MD (PCP) ESTHER NUNES MD Time of Disposition: 13:31 I have reviewed the case, and I agree with, Diagnosis and Plan I performed the substantive portion of the visit. I have reviewed and personally made and approve the management plan that is documented in the note by myself or the RANI. I acknowledge for responsibility for the patient's management plan. TY ROSALES Dec 21, 2024 12:07 DAE MONTANEZ DO Dec 21, 2024 14:56
--- NOTE | 2024-12-21 12:28 | HMCIMG ---
Exam Type: CT ABDOMEN/PELVIS W/O CONTRAST Clinical Information: r/o post bladder outlet obstruction Comparison: None CT Dose Index (CTDI): 10.20 mGy Dose Length Product (DLP): 530.00 total mGy-cm PROTOCOL: Routine noncontrast helical scanning of the abdomen and pelvis was performed at 5mm collimation. Findings: No evidence of nephro or ureterolithiasis is found. No hydronephrosis or ureteral dilatation is seen. The lung bases are clear. The stomach is unremarkable. It shows no wall thickening. No gross ulceration is seen. It is not overly distended. There are no surrounding inflammatory changes. No wall lesions are identified to suggest cancer. The spleen is unremarkable. It is not enlarged. The pancreas shows normal anatomy. It is not fatty replaced. It shows no lesions. The pancreatic duct is not dilated. The gallbladder is unremarkable. It shows no cholelithiasis. The gallbladder wall is normal in thickness. There is no pericholecystic fluid. The is no acute or chronic inflammation noted. The adrenal glands are unremarkable. There is no enlargement. No lesions are noted. The liver is unremarkable. It shows no focal masses. The appendix is unremarkable. It shows no evidence of inflammation. No appendicolith is seen. The small bowel is unremarkable. There is no evidence of dilatation to suggest obstruction. No evidence of adynamic ileus is seen. There is no small bowel wall thickening to suggest enteritis. There is a left inguinal hernia containing loops of sigmoid colon without incarceration or strangulation. The colon is otherwise unremarkable. The urinary bladder is unremarkable. There is no wall thickening to suggest tumor or inflammation. There are no intraluminal calculi. There are no diverticula. There is no evidence of chronic bladder outlet obstruction. There is no evidence of urinary bladder distention to suggest urinary retention. The other pelvic structures are unremarkable. The bony and vascular structures are unremarkable for the patient's age. IMPRESSION: There is a left inguinal hernia containing loops of sigmoid colon without incarceration or strangulation. The exam is otherwise unremarkable. This study was performed using dose reduction techniques to include automated exposure control and/or adjustment of the mA and/or kV according to patient size.
[2024-12-21 13:50] VITALS: BP 151/68; PULSE 89; RESP 18; TEMP 98.7; O2SAT 100
== END 2024-12-21 13:55 | disposition home or self-care (01) ==
LOC: EDH 10:17
DX: R33.8 Other retention of urine (principal); I48.91 Unspecified atrial fibrillation; E78.00 Pure hypercholesterolemia, unspecified; F17.200 Nicotine dependence, unspecified, uncomplicated; I10 Essential (primary) hypertension; K21.9 Gastro-esophageal reflux disease without esophagitis; Z79.01 Long term (current) use of anticoagulants; Z79.82 Long term (current) use of aspirin; Z79.899 Other long term (current) drug therapy
CPT/HCPCS: 36415; 51702; 74176; 80048; 81001; 85025; 99284